=== PATIENT | female | born 1985 ===

== ENCOUNTER 2022-06-13 08:00 | Outpatient (CLI) | payer OTHER ==
[2022-07-14 23:10] LABS: BACTERIAL VAGINOSIS DNA POSITIVE (NEGATIVE); CANDIDA GLABRATA DNA NEGATIVE (NEGATIVE); CANDIDA GROUP DNA POSITIVE (NEGATIVE); CANDIDA KRUSEI DNA NEGATIVE (NEGATIVE); TRICHOMONAS VAGINALIS DNA NEGATIVE (NEGATIVE)
== END 2022-07-14 23:59 | disposition home or self-care (01) ==
LOC: LAB.N 08:00
PROVIDERS: ATTEND Physician Assistant
DX: R30.0 Dysuria (principal)
CPT/HCPCS: 81514; 87086

== ENCOUNTER 2023-09-30 10:24 | Emergency (ER) | payer OTHER ==
[2023-09-30 10:38] VITALS: O2SAT 99
--- NOTE | 2023-09-30 10:44 | ED Physician Documentation ---
PD HPI ABD PAIN - Stated complaint Stated Complaint: ABD PX - Chief complaint Chief Complaint: Abd Pain - History obtained from History obtained from: Patient - History of Present Illness Timing - onset: How many days ago (3) Timing - duration: Days (3) Timing - details: Gradual onset, Still present, Waxing and waning Quality: Cramping, Aching, Pain Location: LLQ Review of Systems Constitutional: denies: Fever, Chills : denies: Dysuria, Discharge Skin: denies: Rash, Lesions Musculoskeletal: denies: Back pain PD PAST MEDICAL HISTORY - Past Medical History Past Medical History: Yes Cardiovascular: None Respiratory: None GI: None [employer]: Endometriosis, Ovarian cysts - Past Surgical History Past Surgical History: No - Present Medications Home Medications: Ambulatory Orders Medication Instructions Recorded Confirmed Meloxicam [Mobic] 7.5 mg PO BID 10 Days #20 tablet 09/30/23 - Allergies Allergies/Adverse Reactions: Allergies Allergy/AdvReac Type Severity Reaction Status Date / Time Sulfa (Sulfonamide Allergy Hives Verified 09/30/23 10:32 Antibiotics) doxycycline AdvReac Anxiety Verified 09/30/23 10:32 - Social History Does the pt smoke?: No Smoking Status: Never smoker PD ED PE NORMAL - Vitals Vital signs reviewed: Yes - General General: Alert and oriented X 3, No acute distress, Well developed/nourished - Cardiac Cardiac: RRR, No murmur - Respiratory Respiratory: No respiratory distress, Clear bilaterally - Abdomen Abdomen: Normal bowel sounds, Soft, Non distended, Other (tender LLQ without local guarding nor percussion tenderness. No rebound. But does have moderate local tednerness. ) Results - Vitals Vitals: Vital Signs - 24 hr 09/30/23 09/30/23 10:29 13:30 Temperature 36.7 C Heart Rate 130 H 99 Respiratory 15 18 Rate Blood Pressure 147/98 H 141/82 H O2 Saturation 99 99 - Labs Labs: Laboratory Tests 09/30/23 09/30/23 09/30/23 10:40 10:52 10:52 WBC 9.5 RBC 4.55 Hgb 14.2 Hct 39.2 MCV 86.2 MCH 31.2 H MCHC 36.2 H RDW 11.9 L Plt Count 290 MPV 8.8 Neut # (Auto) 6.2 Lymph # (Auto) 2.7 Sac # (Auto) 0.5 Eos # (Auto) 0.1 Baso # (Auto) 0.0 Absolute Nucleated RBC 0.00 Nucleated RBC % 0.0 Sodium 136 Potassium 3.7 Chloride 102 Carbon Dioxide 25 Anion Gap 9.0 BUN 9 Creatinine 0.8 Estimated GFR (MDRD) 79 L Glucose 122 H Calcium 9.4 Total Bilirubin 0.9 AST 17 ALT 17 Alkaline Phosphatase 61 Total Protein 7.7 Albumin 4.4 Globulin 3.3 Albumin/Globulin Ratio 1.3 Lipase 26 Urine Color YELLOW Urine Clarity CLEAR Urine pH 6.0 Ur Specific [place] 1.025 Urine Protein NEGATIVE Urine Glucose (UA) NEGATIVE Urine Ketones NEGATIVE Urine Occult Blood MODERATE H Urine Nitrite NEGATIVE Urine Bilirubin NEGATIVE Urine Urobilinogen 0.2 (NORMAL) Ur Leukocyte Esterase NEGATIVE Urine RBC 0-5 Urine WBC 0-3 Ur Squamous Epith Cells MANY Squamous H Urine Bacteria Rare Urine Mucus Moderate Strands Ur Microscopic Review INDICATED Urine Culture Comments NOT INDICATED Urine HCG, Qual NEGATIVE - Rads (name of study) pelvic US Relevant Findings:: Prelim report reviewed (from US tech is that large cyst left side. Normal ovarian flow. No free fluid. ), EMP independent interpretation of test PD Medical Decision Making - ED course Complexity details: reviewed results (LFTs, Lipase and blood count good. UA with some blood but no signs of infection. Vaginal exam not done. U/S showing large cyst left side without signs of rupture nor free fluid. Has blood flow to ovary. ), considered differential (consider ovarian, UTI, stone, diverticulitis (elisabeth since some loose stools). Area of pain not c/w appy, gallbladder, stomach. ), d/w patient Drug Therapy Requiring Monitoring for Toxicity: she declined opioid pain meds, will stay with NSAIDs and TYlenol. Does have easily irritated stomach though, so asks about other ones than Ibuprofen and Naproxen. Departure - Departure Disposition: 01 Home, Self Care Clinical Impression: Left lower quadrant abdominal pain Ovarian cyst Qualifiers: Laterality: left Qualified Code(s): N83.202 - Unspecified ovarian cyst, left side Condition: Stable Record reviewed to determine appropriate education?: Yes Instructions: ED Cyst Ovarian Prescriptions: Meloxicam [Mobic] 7.5 mg PO BID 10 Days #20 tablet Comments: You do have a moderate-sized ovarian cyst measuring 5 x 6 cm. There is no signs of it leaking or ruptured. However it is large enough to be causing pain and c ramping from it self stretching and also pressure on the intestine and such around it. He may benefit some from a stool softener just to ensure easy passage through the lower intestine. Otherwise anti-inflammatories such as meloxicam or such may be helpful. This can be taken just twice a day and is perhaps a little easier on the stomach. Still take it with food. To that add Tylenol 500 to 650 mg 4 times daily or 5 times daily. Follow-up with your [employer] on Sunday as scheduled. Return if increased pain or other problems. Your CT did not show any other abnormalities, in particular no kidney stones, diverticulitis or colitis. Your urine did not show any signs of infection. Forms: PCP List Discharge Date/Time: 09/30/23 13:30
[2023-09-30 10:47] LABS: BILIRUBIN,URINE NEGATIVE (NEGATIVE); GLUCOSE, URINE (UA) NEGATIVE (NEGATIVE); KETONES,URINE (UA) NEGATIVE (NEGATIVE); LEUKOCYTE ESTERASE, URINE NEGATIVE (NEGATIVE); NITRITE,URINE NEGATIVE (NEGATIVE); OCCULT BLOOD,URINE MODERATE (NEGATIVE); PROTEIN,URINE NEGATIVE (NEGATIVE); UROBILINOGEN,URINE 0.2 (NORMAL) E.U./dL (NORMAL)
[2023-09-30 10:53] LABS: CLARITY,URINE CLEAR (CLEAR)
[2023-09-30 10:54] LABS: BACTERIA,URINE Rare /HPF (None Seen); HCG UR QUAL NEGATIVE; MUCUS,URINE Moderate Strands; RBC,URINE 0-5 /HPF (0-5); SQUAMOUS EPITHELIAL CELL,UR MANY Squamous (<= Few); WBC,URINE 0-3 /HPF (0-5)
[2023-09-30 10:57] LABS: BASOPHILS % (AUTO) 0.2 %; EOSINOPHILS # (AUTO) 0.1 10^3/uL (0.0-0.7); EOSINOPHILS % (AUTO) 1.2 %; HCT - HEMATOCRIT 39.2 % (37.0-47.0); HGB - HEMOGLOBIN 14.2 g/dL (12.0-16.0); LYMPHOCYTES # (AUTO) 2.7 10^3/uL (1.5-3.5); MEAN CORPUSCULAR HEMOGLOBIN 31.2 pg (27.0-31.0); MEAN CORPUSCULAR HGB CONC 36.2 g/dL (32.0-36.0); MEAN CORPUSCULAR VOLUME 86.2 fL (81.0-99.0); MEAN PLATELET VOLUME 8.8 fL (7.9-10.8); MONOCYTES # (AUTO) 0.5 10^3/uL (0.0-1.0); MONOCYTES % (AUTO) 5.3 %; NEUTROPHILS # (AUTO) 6.2 10^3/uL (1.5-6.6); PLT - PLATELET COUNT 290 10^3/uL (130-450); RED BLOOD COUNT 4.55 10^6/uL (4.20-5.40); RED CELL DISTRIBUTION WIDTH 11.9 % (12.0-15.0); WHITE BLOOD COUNT 9.5 x10^3/uL (4.8-10.8)
[2023-09-30 11:18] LABS: ALBUMIN 4.4 g/dL (3.2-5.5); ALBUMIN/GLOBULIN RATIO 1.3 (1.0-2.2); BILIRUBIN,TOTAL 0.9 mg/dL (0.2-1.0); CALCIUM 9.4 mg/dL (8.5-10.3); CREATININE 0.8 mg/dL (0.6-1.3); POTASSIUM 3.7 mmol/L (3.5-4.5); TOTAL PROTEIN 7.7 g/dL (6.4-8.9)
[2023-09-30] MEDS ORDERED: KETOROLAC 15 MG/ML VIAL IVP STA (11:20)
--- NOTE | 2023-09-30 12:18 | CT Report ---
PROCEDURE: ABDOMEN/PELVIS WO INDICATIONS: left lower abd pain TECHNIQUE: A CT scan of the abdomen and pelvis was performed without the use of intravenous contrast. Images we re recorded and evaluated at appropriate window settings. Reformats: coronal and sagittal. For radiat ion dose reduction, the following was used: automated exposure control, adjustment of mA and/or kV ac cording to patient size. COMPARISON: None. FINDINGS: Image quality: Excellent. Lung bases and heart: Unremarkable. Liver: No mass. Hepatic steatosis. Gallbladder and biliary tree: Unremarkable. Spleen: No splenomegaly. Pancreas: No pancreatic ductal dilation. Adrenals: No adrenal nodule. Kidneys and ureters: No hydronephrosis. No renal cystic lesion which requires follow up. No solid mas s. Bowel and peritoneum: No bowel distension. No pathologic free fluid. Lymph nodes: No central or retroperitoneal adenopathy. Vessels: No infrarenal aortic aneurysm. PELVIS Reproductive organs: Left adnexal cyst measuring 5.5 cm. Bladder: No wall thickness, accounting for underdistention. Pelvic lymph nodes: No pelvic adenopathy by size criteria. Bones: No aggressive osseous abnormality. Other: No significant ventral or inguinal hernia. IMPRESSION: No hydronephrosis or obstructing renal stone. Left adnexal cyst measuring 5.5 cm. No intrahepatic steatosis. Reviewed by: Torey Abebe MD on 09/30/2023 11:16 AM [facility] Approved by: Torey Abebe MD on 09/30/2023 11:16 AM [facility] Station ID: [id number]
[2023-09-30 13:39] VITALS: BP 141/82
== END 2023-09-30 13:30 | disposition home or self-care (01) ==
LOC: ED 10:24
DX: N83.202 Unspecified ovarian cyst, left side (principal)
CPT/HCPCS: 36415; 80053; 81001; 81003; 81025; 83690; 85025; 87086; 99283; 99284